=== PATIENT | male | born 1955 | race American Indian/Alaskan Native ===

== ENCOUNTER 2018-02-25 09:14 | Emergency (ER) | payer OTHER, MEDICARE ==
[~2018-02-25] VITALS: Ht 182.9 cm; Wt 102.2 kg
[~2018-02-25 09:14] MED LIST: ASPI-1265 PO; ESOM40CA PO; LOSA25TA96 PO; NITR0.4T51 SL; ROSU40TA PO
[2018-02-25] MEDS ORDERED: GABA-532 PO (10:56)
[2018-02-25 11:11] VITALS: BP 129/67
== END 2018-02-25 11:19 | disposition home or self-care (01) ==
LOC: ER 09:14
DX: M54.6 Pain in thoracic spine (principal); I25.10 Atherosclerotic heart disease of native coronary artery without angina pectoris; I50.9 Heart failure, unspecified; I11.0 Hypertensive heart disease with heart failure; E78.00 Pure hypercholesterolemia, unspecified; J44.9 Chronic obstructive pulmonary disease, unspecified; Z98.61 Coronary angioplasty status; Z90.49 Acquired absence of other specified parts of digestive tract; Z95.1 Presence of aortocoronary bypass graft; Z95.0 Presence of cardiac pacemaker; Z98.890 Other specified postprocedural states; Z60.2 Problems related to living alone; Z56.0 Unemployment, unspecified; Z79.82 Long term (current) use of aspirin; Z79.899 Other long term (current) drug therapy
CPT/HCPCS: 99283